=== PATIENT | female | born 1970 | race African-American/Black ===

== ENCOUNTER 2020-06-16 04:56 | Day surgery (SDC) | payer OTHER ==
[2020-06-10 10:40] VITALS: BMI 38.9
[2020-06-16] MEDS ORDERED: MIDAZOLAM HCL 2 MG/2 ML SINGLE DOSE VIAL ONE (16:48)
[2020-06-16] MEDS ORDERED: KETOROLAC TROMETHAMINE 30 MG/1 ML VIAL ONE (17:32)
[2020-06-16] MEDS ORDERED: DEXAMETHASONE SOD PHOSPHATE 4 MG/1 ML VIAL ONE (17:32)
[2020-06-16 18:18] VITALS: TEMP 97.8
[2020-06-16 19:15] VITALS: BP 142/98; PULSE 78
== END 2020-06-16 19:00 | disposition home or self-care (01) ==
LOC: JASU-SURG 04:56
PROVIDERS: ATTEND Urology
PROC: 0TF3XZZ Fragmentation in Right Kidney Pelvis, External Approach (ICD-10-PCS; principal; 2020-06-16 14:00)
DX: N20.0 Calculus of kidney (principal)

== ENCOUNTER → 2025-03-07 | Day surgery (SDC) | payer OTHER | END | disposition home or self-care (01) | LOC: JRADIR 09:26 | PROVIDERS: ATTEND Internal Medicine Endocrinology, Diabetes & Metabolism | PROC: 0G9H3ZX Drainage of Right Thyroid Gland Lobe, Percutaneous Approach, Diagnostic (ICD-10-PCS; principal; 2025-03-07) | DX: E04.1 Nontoxic single thyroid nodule (principal) | CPT/HCPCS: 76942; 88173; 88305-TC ==

== ENCOUNTER 2025-03-25 10:48 | Inpatient (IN) | payer OTHER ==
[2025-03-25 10:56] VITALS: BMI 37.2
[2025-03-25] MEDS ORDERED: ACETAMINOPHEN INJECTION 100 ML ONE (12:16)
[2025-03-25] MEDS ORDERED: KETOROLAC TROMETHAMINE 15 MG/ML VIAL ONE (12:17)
[2025-03-25] MEDS: KETOROLAC TROMETHAMINE 15 MG/ML VIAL IVPUSH ONE (12:45)
[2025-03-25] MEDS: ACETAMINOPHEN 1000 MG/100 ML BAG IVPB ONE (12:48)
[2025-03-25 12:54] LABS: URINE APPEARANCE CLEAR; URINE BILIRUBIN NEGATIVE (NEGATIVE); URINE COLOR YELLOW; URINE GLUCOSE (UA) NEGATIVE (NEGATIVE); URINE KETONE NEGATIVE (NEGATIVE); URINE LEUK ESTERASE 2+ (NEGATIVE); URINE NITRITE POSITIVE (NEGATIVE); URINE PROTEIN NEGATIVE (NEGATIVE); URINE UROBILINOGEN 0.2 mg/dL (0.2-1.0)
[2025-03-25 13:15] LABS: ABSOLUTE IMMATURE GRANULOCYTES 0.01 x10^3/uL (0.0-0.031); BASOPHILS # 0.04 x10^3/uL (0.01-0.08); EOSINOPHIL % 0.3 % (0.7-5.8); EOSINOPHILS # 0.02 x10^3/uL (0.04-0.36); MCHC 28.7 g/dl (32.2-35.5); MEAN CELL VOLUME 73.9 fl (79.4-94.8); MONOCYTE # 0.84 x10^3/uL (0.24-0.86); MONOCYTE % 10.7 % (4.7-12.5); RDW 14.6 % (12.3-16.6)
[2025-03-25 13:32] LABS: GLUCOSE,RANDOM 94.0 mg/dL (74-106)
[2025-03-25 13:33] LABS: TOT PROT 7.8 g/dl (6.4-8.2)
[2025-03-25 13:34] LABS: CO2 30.0 mmol/L (21-32)
[2025-03-25 13:35] LABS: ALK PHOS 77.0 U/L (40-150)
[2025-03-25 13:38] LABS: CREATININE 1.02 mg/dL (0.55-1.3); SGOT/AST 20.0 U/L (5-34); SGPT/ALT 16.0 U/L (0-55)
[2025-03-25] MEDS ORDERED: PIPERACILLIN/TAZOB 4.5 GM 4.5 GM/100 ML BAG IVPB ONE (15:21)
[2025-03-25] MEDS: PIPERACILLIN/TAZOB 4.5 GM 4.5 GM in DEXTROSE 5%-WATER 100 ML IVPB ONE (15:32)
[2025-03-25] MEDS: SODIUM CHLORIDE 0.9% 500 ML INFUS.BAG IV ONE (16:37)
[2025-03-25] MEDS: HEPARIN NA (PORCINE) 5,000 UNITS/ML 1ML VIAL SQ SCH (21:05)
[2025-03-26] MEDS: PIPERACILLIN/TAZOB 3.375 GM 3.375 GM in DEXTROSE 5%-WATER - 50 ML IVPB SCH (00:41)
[2025-03-26] MEDS: INSULIN ASPART SLIDING SCALE (NOVOLOG) 1 VIAL SQ SCH (06:24)
[2025-03-26 08:17] LABS: ABSOLUTE IMMATURE GRANULOCYTES 0.01 x10^3/uL (0.0-0.031); RDW 14.6 % (12.3-16.6)
[2025-03-26 08:19] LABS: BASOPHILS # 0.03 x10^3/uL (0.01-0.08); EOSINOPHIL % 0.4 % (0.7-5.8); EOSINOPHILS # 0.02 x10^3/uL (0.04-0.36); IMMATURE PLATELET FRACTION # 20.60 x10^3/uL; MCHC 29.0 g/dl (32.2-35.5); MEAN CELL VOLUME 73.9 fl (79.4-94.8); MONOCYTE # 0.60 x10^3/uL (0.24-0.86); MONOCYTE % 11.1 % (4.7-12.5)
[2025-03-26 08:47] VITALS: BP 152/90; PULSE 64; RESP 17; TEMP 98.4
[2025-03-26 08:50] LABS: GLUCOSE,RANDOM 67.0 mg/dL (74-106)
[2025-03-26 08:51] LABS: CO2 27.0 mmol/L (21-32)
[2025-03-26 08:53] LABS: ALK PHOS 65.0 U/L (40-150)
[2025-03-26 08:56] LABS: CREATININE 0.97 mg/dL (0.55-1.3); SGOT/AST 21.0 U/L (5-34); SGPT/ALT 16.0 U/L (0-55)
[2025-03-26 09:04] LABS: TOT PROT 6.8 g/dl (6.4-8.2)
[2025-03-26] MEDS: VALSARTAN 160 MG TABLET PO SCH (09:12)
[2025-03-26] MEDS: HYDROCHLOROTHIAZIDE 25 MG TABLET (FP) PO SCH (09:12)
[2025-03-26] MEDS: amLODIPine BESYLATE 10 MG TABLET (FP) PO SCH (09:12)
[2025-03-26] MEDS: FLUTICASONE/UMECLIDIN/VILANTER(200-62.5-25 TRELEGY ELLIPTA) INAHLER IH SCH (09:13)
[2025-03-26] MEDS ORDERED: PATIENT'S OWN MEDICATION (NON-FORMULARY) (Valsartan/Hydrochlorothiazide [Valsartan-Hctz 32 PO SCH (10:00)
[2025-03-27 13:08] LABS: PARATHYROID HORM INTACT 112 pg/mL (15-65)
[2025-03-28] MEDS ORDERED: PIPERACILLIN/TAZOB 3.375 GM 3.375 GM in DEXTROSE 5%-WATER - 50 ML IVPB SCH (18:00)
== END 2025-03-26 10:55 | disposition home or self-care (01) | DRG 463 ==
LOC: JER 10:48 → JERBED 14:01 → OBSVTOIN 17:02 → J7W 17:42
PROVIDERS: ADMIT Family Medicine; ATTEND Family Medicine
DX: N39.0 Urinary tract infection, site not specified (principal); E11.9 Type 2 diabetes mellitus without complications; E78.5 Hyperlipidemia, unspecified; I10 Essential (primary) hypertension; E86.0 Dehydration
CPT/HCPCS: 36415; 71046-TC-FY; 74177-TC; 80053; 81003; 82310; 82962; 83690; 83735; 83970; 84443; 84484; 85025; 87086; 87637-QW; 93005; 93010; 99285-25; G0378; Q9967